=== PATIENT | male | born 1975 | race Two or more races ===

== ENCOUNTER 2021-10-07 13:21 | Emergency (ER) | payer SELFPAY ==
[~2021-10-07] VITALS: Ht 162.6 cm; Wt 77.7 kg
[2021-10-07 13:42] VITALS: BP 134/82
--- NOTE | 2021-10-07 14:41 | RAD ---
XR RIBS MIN 3 VIEWS LT W/PA CHEST 10/07/2021 2:03 PM INDICATION: Left rib pain COMPARISON: None available TECHNIQUE: Frontal view of the chest is provided. 2 dedicated views the left ribs are provided. FINDINGS: The cardiomediastinal silhouette is within normal limits. There are no pleural effusions. There is no pulmonary vascular congestion. There is no pneumothorax. The lungs are clear. No significant osseous abnormality is identified. No acutely displaced left-sided rib fracture. IMPRESSION: No acute cardiopulmonary process. No acutely displaced left-sided rib fracture. Electronically signed by: Jaquelin Howard MD (10/07/2021 2:38 PM) [id number]
[2021-10-07] MEDS ORDERED: NAPR-514 PO (14:56)
[2021-10-07] MEDS ORDERED: METH4TAB2 PO (14:56)
[2021-10-07] MEDS ORDERED: CYCL10TA19 PO (14:56)
--- NOTE | 2021-10-07 14:56 | PHYS DOC ---
Past Medical History Past Surgical History: No Surgical History (OBIE CHENEY PERCHER) General Adult EDM: Chief Complaint: RIB PAIN HPI: HPI: Patient is a 46 year old male patient with no significant medical history presented to the ED today complaining of a sharp intermittent 8 out of 10 left rib pain, symptoms began 4 days ago. Patient denies any trauma. Denies any fever coughing or congestion. States the pain is worse on touching the left ribs. Denies anything specifically relieving the pain. Denies any recent hospitalizations, denies any recent long RAMAN car trouble. Denies any shortness of breath, denies any unilateral leg pain, denies any recent surgeries, denies any use of hormones. Patient is Hungarian-speaking and motor vehicle parts interpreter line was used for Hungarian. (OBIE CHENEY APRN) Review of Systems: Review of Systems: Constitutional: Denies fever or chills. [] Eyes: Denies change in visual acuity. [] HENT: Denies nasal congestion or sore throat. [] Respiratory: Reports left rib pain. Denies cough or shortness of breath. [] Cardiovascular: Denies chest pain or edema. [] GI: Denies abdominal pain, nausea, vomiting, bloody stools or diarrhea. [] : Denies dysuria. [] Musculoskeletal: Denies back pain or joint pain. [] Integument: Denies rash. [] Neurologic: Denies headache, focal weakness or sensory changes. [] Psychiatric: Denies depression or anxiety. [] (OBIE CHENEY PERCHER) Heart Score: C/O Chest Pain: N/A Risk Factors: Risk Factors: DM, Current or recent (<one month) smoker, HTN, HLP, family history of CAD, obesity. Risk Scores: Score 0 - 3: 2.5% MACE over next 6 weeks - Discharge Home Score 4 - 6: 20.3% MACE over next 6 weeks - Admit for Clinical Observation Score 7 - 10: 72.7% MACE over next 6 weeks - Early Invasive Strategies (OBIE CHENEY PERCHER) Allergies: Allergies: Allergies Coded Allergies Type Severity Reaction Last Updated Verified No Known Drug Allergies 10/07/21 No (OBIE CHENEY APRN) Physical Exam: PE: Constitutional: Well developed, well nourished, no acute distress, non-toxic appearance. [] HENT: Normocephalic, atraumatic, bilateral external ears normal, oropharynx mo ist, no oral exudates, nose normal. [] Eyes: PERRLA, EOMI, conjunctiva normal, no discharge. [] Neck: Normal range of motion, no tenderness, supple, no stridor. [] Cardiovascular:Heart rate regular rhythm, no murmur [] Lungs & Thorax: Bilateral breath sounds clear to auscultation [] Abdomen: Bowel sounds normal, soft, no tenderness, no masses, no pulsatile masses. [] Skin: Warm, dry, no erythema, no rash. [] Back: No tenderness, no CVA tenderness. [] Extremities: No tenderness, no cyanosis, no clubbing, ROM intact, no edema. [] Neurologic: Alert and oriented X 3, normal motor function, normal sensory function, no focal deficits noted. [] Psychologic: Affect normal, judgement normal, mood normal. [] (OBIE CHENEY PERCHER) Current Patient Data: Vital Signs: Vital Signs Date Time Temp Pulse Resp B/P (MAP) Pulse Ox O2 Delivery O2 Flow Rate FiO2 10/07/21 13:42 98.2 82 18 134/82 (99) 98 98.2 (OBIE CHENEY PERCHER) EKG: EKG: [] (OBIE CHENEY PERCHER) Radiology/Procedures: Radiology/Procedures: []PROCEDURE: RIBS LEFT AND PA CHEST XR RIBS MIN 3 VIEWS LT W/PA CHEST 10/07/2021 2:03 PM INDICATION: Left rib pain COMPARISON: None available TECHNIQUE: Frontal view of the chest is provided. 2 dedicated views the left ribs are provided. FINDINGS: The cardiomediastinal silhouette is within normal limits. There are no pleural effusions. There is no pulmonary vascular congestion. There is no pneumothorax. The lungs are clear. No significant osseous abnormality is identified. No acutely displaced left- sided rib fracture. IMPRESSION: No acute cardiopulmonary process. No acutely displaced left-sided rib fracture. Electronically signed by: Chacho Lopez MD (10/07/2021 2:38 PM) [id number] DICTATED and SIGNED BY: CHACHO LOPEZ MD DATE: 10/07/21 1437 (OBIE CHENEY PERCHER) Course & Med Decision Making: Course & Med Decision Making Pertinent Labs and Imaging studies reviewed. (See chart for details) This a 46-year-old female patient presented to the ED today with left rib pain, symptoms began 4 days ago, no known injury. Left rib x-rays including PA chest are negative. Discharge to home. Instructed to take deep breaths 10 times every hour of breath. Given prescription for Flexeril, naproxen and Medrol Dosepak. Follow-up with PCP in 1 week (OBIE CHENEY APRN) Kiley Disclaimer: Kiley Disclaimer: This electronic medical record was generated, in whole or in part, using a voice recognition dictation system. (OBIE CHENEY APRN) Departure Departure Impression: Primary Impression: Rib pain on left side Disposition: 01 HOME / SELF CARE / HOMELESS Condition: STABLE Referrals: NO PCP (PCP) follow up with your doctor in 1-2 weeks Patient Instructions: Musculoskeletal Pain Additional Instructions: You were evaluated in the emergency room for left rib pain. Your left rib x- rays including PA chest are negative for any acute findings. Please take deep breaths 10 times every hour while awake. Take the prescribed medications as ordered. Follow-up with your doctor in 1 to 2 weeks Scripts Naproxen (NAPROXEN) 500 Mg Tablet 1 TAB PO BID for pain, #14 TAB 0 Refills Prov: OBIE CHENEY Joaquim URIBE 10/07/21 Methylprednisolone (MEDROL) 4 Mg Tab.ds.pk 1 PKG PO UD, #1 PKG Prov: OBIE CHENEY Joaquim URIBE 10/07/21 Cyclobenzaprine Hcl (CYCLOBENZAPRINE HCL) 10 Mg Tablet 1 TAB PO TID, #90 TAB Prov: GRABIELOBIE ALVARADO Joaquim URIBE 10/07/21 Attending Signature I have participated in the care of this patient and I have reviewed and agree with all pertinent clinical information above including history, exam, and recommendations. (SEAN MANE DO) OBIE CHENEY APRN Oct 07, 2021 14:56 SEAN MANE DO Oct 07, 2021 16:09
== END 2021-10-07 15:20 | disposition home or self-care (01) ==
LOC: ER 13:21
DX: R07.81 Pleurodynia (principal)
CPT/HCPCS: 71101; 99283